=== PATIENT | female | born 1945 | race Caucasian/White ===

== ENCOUNTER 2020-08-05 07:40 | Day surgery (SDC) | payer MEDICARE ==
[2020-07-31 13:43] LABS: BASOPHILS % (AUTO) 0.7 % (0.0-5.0); EOSINOPHILS % (AUTO) 1.1 % (0.0-8.0); HEMATOCRIT 39.2 % (36-48); LYMPHOCYTES % (AUTO) 26.4 % (21.0-51.0); MEAN CORPUSCULAR HEMOGLOBIN 28.5 pg (27.0-33.0); MEAN CORPUSCULAR HGB CONC 32.7 g/dL (32.0-36.0); MEAN CORPUSCULAR VOLUME 87.3 fL (79-99); MONOCYTES % (AUTO) 7.7 % (3.0-13.0); NEUTROPHILS % (AUTO) 63.9 % (40.0-77.0); PLATELET COUNT (AUTO) 217 K/uL (130-400); RED BLOOD CELL COUNT(AUTO) 4.49 MIL/uL (4.00-5.50); RED CELL DISTRIBUTION WIDTH 13.3 % (11.0-15.5); WHITE BLOOD COUNT (AUTO) 5.6 K/uL (4.8-10.8)
[2020-07-31 13:57] LABS: CREATININE 0.9 mg/dL (0.5-1.5); POTASSIUM 4.3 mmol/L (3.5-5.1)
--- NOTE | 2020-08-03 12:04 | NUR ---
SPOKE TO CHRIS BECKER ABOUT MEDICATION REGIMEN, PT IS NOT TAKING METOPROLOL DUE TO LOW BP AND PULSE, NO CONCERNS VOICED OKAY TO PROCEED, PT ADVISED TO TAKE MULTAQ AND XARELTO.
[~2020-08-05] VITALS: Ht 180.3 cm; Wt 62.6 kg
[~2020-08-05 07:40] MED LIST: BIOT10006 PO; CHOL100046 PO; DRON400T2 PO; L.AC1CAP6 PO; MAGN400C PO; PYRI100T10 PO; RIVA20TA PO; VITAMIN B12 PO; VITAMIN E PO
[2020-08-05 08:45] VITALS: BP 122/83
[2020-08-05] MEDS ORDERED: SODIUM CHLORIDE 0.9% 1000ML 1,000 ML IV ONE (08:57)
[2020-08-05] MEDS ORDERED: PROPOFOL 10 MG/ML 20ML VIAL IV ONE (09:05)
[2020-08-05 09:15] VITALS: BP 105/66
[2020-08-05 09:30] VITALS: BP 86/58
[2020-08-05 09:45] VITALS: BP 108/55
[2020-08-05 10:00] VITALS: BP 100/50
[2020-08-05 10:15] VITALS: BP 113/69
--- NOTE | 2020-08-05 10:30 | NUR ---
DISCHARGED HOME. NO ACUTE DISTRESS NOTED . TO CAR VIA WHEELCHAIR. IV CATH REMOVED INTACT. PRINTED AND VERBAL DISCHARGE INSTRUCTION GIVEN . VERBALIZES UNDERSTANDING.
== END 2020-08-05 10:30 | disposition home or self-care (01) ==
LOC: DAH 07:40
PROVIDERS: ATTEND Internal Medicine Cardiovascular Disease
DX: I48.0 Paroxysmal atrial fibrillation (principal); I25.10 Atherosclerotic heart disease of native coronary artery without angina pectoris; Z85.3 Personal history of malignant neoplasm of breast; Z79.01 Long term (current) use of anticoagulants; Z79.899 Other long term (current) drug therapy; Z20.828 Contact with and (suspected) exposure to other viral communicable diseases; Z98.890 Other specified postprocedural states
CPT/HCPCS: 36415; 80048; 85025; 92960; 93005 ×3; A4215; A4216; A4221; A4222; A4223 ×3; A4663; C9803; J2704; J7030; U0003

== ENCOUNTER 2023-08-10 05:47 | Day surgery (SDC) | payer MEDICARE ==
[2023-08-08 09:24] LABS: BASOPHILS # (AUTO) 0.07 K/uL (0.00-0.20); BASOPHILS % (AUTO) 1.6 % (0.0-5.0); EOSINOPHILS # (AUTO) 0.12 K/uL (0.00-0.70); EOSINOPHILS % (AUTO) 2.7 % (0.0-8.0); HEMATOCRIT 41.8 % (36-48); IMMATURE GRANULOCYTE ABSOLUTE 0.01 K/uL (0-1); LYMPHOCYTES # (AUTO) 1.1 K/uL (1.0-4.8); LYMPHOCYTES % (AUTO) 23.7 % (21.0-51.0); MEAN CORPUSCULAR HEMOGLOBIN 28.7 pg (27.0-33.0); MEAN CORPUSCULAR HGB CONC 32.3 g/dL (32.0-36.0); MEAN CORPUSCULAR VOLUME 88.7 fL (79-99); MONOCYTES # (AUTO) 0.4 K/uL (0.1-1.0); MONOCYTES % (AUTO) 9.6 % (3.0-13.0); NEUTROPHILS # (AUTO) 2.8 K/uL (1.8-7.7); NEUTROPHILS % (AUTO) 62.2 % (40.0-77.0); PLATELET COUNT (AUTO) 245 K/uL (130-400); RED BLOOD CELL COUNT(AUTO) 4.71 MIL/uL (4.00-5.50); RED CELL DISTRIBUTION WIDTH 13.2 % (11.0-15.5); WHITE BLOOD COUNT (AUTO) 4.5 K/uL (4.8-10.8)
[2023-08-08 09:27] VITALS: BP 104/65; PULSE 95; RESP 16
[2023-08-08 09:33] LABS: CREATININE 0.9 mg/dL (0.5-1.5); POTASSIUM 4.3 mmol/L (3.5-5.1)
[2023-08-08 09:36] LABS: INR 0.99 (0.85-1.15); PROTHROMBIN TIME 11.5 SEC (9.6-11.6)
[2023-08-08 09:38] LABS: PARTIAL THROMBOPLASTIN TIME 29.7 SEC (26.3-35.5)
[~2023-08-10] VITALS: Ht 177.8 cm; Wt 62.4 kg
[2023-08-10] VITALS (8 sets, daily range): BP systolic 100–141; BP diastolic 71–82; PULSE 73–84; RESP 14–17
[~2023-08-10 05:47] MED LIST changes: +APIX5TAB PO; -BIOT10006 PO; -CHOL100046 PO; -DRON400T2 PO; +FLEC100T3 PO; -L.AC1CAP6 PO; +POTA99CA PO; -PYRI100T10 PO; -RIVA20TA PO; -VITAMIN B12 PO; -VITAMIN E PO
[2023-08-10] MEDS ORDERED: 0.9%NACL 1000ML 1,000 ML IV ONE (06:41)
[2023-08-10] MEDS ORDERED: MIDAZOLAM HCL 1 MG/ML 2ML VIAL ONE ×4 (10:12→11:50)
[2023-08-10] MEDS ORDERED: MEPERIDINE-PF 25 MG/ML SYG ONE ×4 (10:12→11:49)
[2023-08-10] MEDS ORDERED: HEPARIN 10,000 UNIT/10ML (1,000 UNIT/ML) VIAL ONE (10:12)
[2023-08-10] MEDS ORDERED: LIDOCAINE HCL 1% MDV 50ML VIAL ONE (10:12)
[2023-08-10] MEDS ORDERED: AMIODARONE 150MG VIAL ONE (12:02)
== END 2023-08-10 15:40 | disposition home or self-care (01) ==
LOC: DAH 05:47
PROVIDERS: ATTEND Internal Medicine Cardiovascular Disease
DX: I48.3 Typical atrial flutter (principal); I44.1 Atrioventricular block, second degree; I48.0 Paroxysmal atrial fibrillation; I45.10 Unspecified right bundle-branch block; Z79.01 Long term (current) use of anticoagulants; Z79.899 Other long term (current) drug therapy; Z85.3 Personal history of malignant neoplasm of breast; Z91.040 Latex allergy status
CPT/HCPCS: 80048; 85025; 85610; 85730; 36415; 93005; 93653; C1894 ×2; C1732 ×2; A4649 ×2; J7030; J1644 ×2; J2250 ×4; J2175 ×4; J3490; J0282; A4215; A4222; A4221; A4663; A4216; A4606; A4223 ×3; 99156; 99157